=== PATIENT | male | born 1970 | race Caucasian/White ===

== ENCOUNTER → 2016-05-28 | Outpatient (CLI) | payer OTHER, MEDICAID ==
--- NOTE | 2016-05-28 14:16 | CPEEG ---
DATE OF STUDY: 05/28/2016 INTERPRETATION: Normal EEG during wakefulness and sleep. There were no potentially epileptogenic a bnormalities present during the recording. REPORT: This EEG contains 9 Hz alpha activity to the posterior head regions. There was no abnormal activation at rest, during photic stimulation, or hyperventilation. There was prominent beta activ ity in the background, this is a normal variant. In addition, the patient had a bi-central mu rhyth m. This is a normal finding as well. The patient became drowsy and fell asleep during the study. There was no abnormal activation during drowsiness, sleep, or during times of arousal. /[id number]/MODL
== END ==
LOC: FCPNEURO 08:46
PROVIDERS: ATTEND Family Medicine Sports Medicine
DX: S06.9X9A Unspecified intracranial injury with loss of consciousness of unspecified duration, initial encounter (principal)

== ENCOUNTER → 2018-04-18 | Outpatient (CLI) | payer MEDICAID | LOC: FIMAGING 15:16 | PROVIDERS: ATTEND Psychiatry & Neurology Neurology | DX: R40.4 Transient alteration of awareness (principal) ==